=== PATIENT | female | born 1995 | race Caucasian/White ===

== ENCOUNTER 2018-02-17 12:50 | Outpatient (RCR) | payer MEDICAID, SELFPAY ==
--- NOTE | 2018-02-17 12:51 | COCO.VHC ---
New/Renewal Application Status: New Application Submitted?: Yes Date Submitted:: 01/18/18 Notes:: Cynthia came into the office and we submitted a [facility] application. SHe will follow up if she needs any more help.
--- NOTE | 2018-02-17 12:54 | PDOC.VHC_ITS ---
New/Renewal Application Status: New Application Submitted?: Yes Date Submitted:: 01/18/18 Notes:: Cynthia came into the office and we submitted a [facility] application. SHe will follow up if she needs any more help.
== END 2018-03-11 23:59 ==
LOC: COCO 12:50
PROVIDERS: PCP Nurse Practitioner; Visit Provider Nurse Practitioner
DX: R69 Illness, unspecified (principal)